=== PATIENT | male | born 1955 | race Caucasian/White ===

== ENCOUNTER → 2017-08-14 11:24 | Outpatient (REF) | payer BC, SELFPAY ==
[2017-08-14 14:02] LABS: Amphetamine/Metha Screen,Urine Negative ng/mL (<1000); Barbiturates Screen,Urine Negative ng/mL (<200); Benzodiazepines Screen,Urine Negative ng/mL (200); Cannabinoid Screen,Urine Negative ng/mL (<50); Cocaine Screen,Urine Negative ng/g (<300); Methadone Screen,Urine Negative ng/mL (<300); Opiate Screen,Urine Negative ng/mL (<300); Phencyclidine Screen,Urine Negative ng/mL (<25)
== END ==
LOC: LAB 11:24
PROVIDERS: Visit Provider Emergency Medicine
DX: Z79.891 Long term (current) use of opiate analgesic (principal)
CPT/HCPCS: 80305

== ENCOUNTER → 2018-02-12 13:47 | Outpatient (CLI) | payer BC, SELFPAY ==
[2018-02-12 15:24] LABS: Amphetamine/Metha Screen,Urine Negative ng/mL (<1000); Barbiturates Screen,Urine Negative ng/mL (<200); Benzodiazepines Screen,Urine Negative ng/mL (<200); Cannabinoid Screen,Urine Negative ng/mL (<50); Cocaine Screen,Urine Negative ng/mL (<300); Methadone Screen,Urine Negative ng/mL (<300); Opiate Screen,Urine Negative ng/mL (<300); Phencyclidine Screen,Urine Negative ng/mL (<25)
== END ==
PROVIDERS: Visit Provider Emergency Medicine
DX: Z79.899 Other long term (current) drug therapy (principal)
CPT/HCPCS: 80305

== ENCOUNTER → 2018-08-06 14:49 | Outpatient (CLI) | payer BC, SELFPAY ==
[2018-08-06 16:13] LABS: Amphetamine/Metha Screen,Urine Negative ng/mL (<1000); Barbiturates Screen,Urine Negative ng/mL (<200); Benzodiazepines Screen,Urine Negative ng/mL (<200); Cannabinoid Screen,Urine Negative ng/mL (<50); Cocaine Screen,Urine Negative ng/mL (<300); Methadone Screen,Urine Negative ng/mL (<300); Opiate Screen,Urine Negative ng/mL (<300); Phencyclidine Screen,Urine Negative ng/mL (<25)
[2018-08-13 14:19] LABS: Alprazolam Negative (Cutoff=100); Benzodiazepines Negative ng/mL (Cutoff=100); Clonazepam Negative (Cutoff=100); Flurazepam Negative (Cutoff=100); Lorazepam Negative (Cutoff=100); Midazolam Negative (Cutoff=100); Temazepam Negative (Cutoff=100); Triazolam Negative (Cutoff=100)
== END ==
PROVIDERS: Visit Provider Emergency Medicine
DX: F41.9 Anxiety disorder, unspecified (principal); Z79.899 Other long term (current) drug therapy
CPT/HCPCS: 80305; 80346

== ENCOUNTER → 2019-02-04 16:59 | Outpatient (CLI) | payer BC, SELFPAY ==
[2019-02-04 20:19] LABS: Amphetamine/Metha Screen,Urine Negative ng/mL (<1000); Barbiturates Screen,Urine Negative ng/mL (<200); Benzodiazepines Screen,Urine Negative ng/mL (<200); Cannabinoid Screen,Urine Negative ng/mL (<50); Cocaine Screen,Urine Negative ng/mL (<300); Methadone Screen,Urine Negative ng/mL (<300); Opiate Screen,Urine Negative ng/mL (<300); Phencyclidine Screen,Urine Negative ng/mL (<25)
[2019-02-13 14:10] LABS: Alprazolam Negative (Cutoff=100); Benzodiazepines Positive ng/mL (Cutoff=100); Clonazepam Positive (.); Flurazepam Negative (Cutoff=100); Lorazepam Negative (Cutoff=100); Midazolam Negative (Cutoff=100); Temazepam Negative (Cutoff=100); Triazolam Negative (Cutoff=100)
[2019-02-14 06:47] LABS: Clonazepam Confirm 158 ng/mL (Cutoff=100)
== END ==
PROVIDERS: Visit Provider Emergency Medicine
DX: Z79.899 Other long term (current) drug therapy (principal)
CPT/HCPCS: 80305; 80346

== ENCOUNTER → 2019-08-01 16:47 | Outpatient (CLI) | payer BC, SELFPAY ==
[2019-08-01 18:19] LABS: Barbiturates Screen,Urine Negative ng/ml (<200); Benzodiazepines Screen,Urine Negative ng/ml (<200)
[2019-08-01 18:20] LABS: Amphetamine/Metha Screen,Urine Negative ng/ml (<1000)
[2019-08-01 18:21] LABS: Cannabinoid Screen,Urine Negative ng/ml (<50); Cocaine Screen,Urine Negative ng/ml (<300)
[2019-08-01 18:22] LABS: Methadone Screen,Urine Negative ng/ml (<300)
[2019-08-01 18:23] LABS: Opiate Screen,Urine Negative ng/ml (<300)
[2019-08-01 18:24] LABS: Phencyclidine Screen,Urine Negative ng/ml (<25)
== END ==
PROVIDERS: Visit Provider Emergency Medicine
DX: Z79.899 Other long term (current) drug therapy (principal)
CPT/HCPCS: 80305

== ENCOUNTER 2019-08-26 13:32 | Emergency (ER) | payer BC, SELFPAY ==
[2019-08-26 13:34] VITALS: BP 150/49; PULSE 79; RESP 19; TEMP 36.8; O2SAT 100; BMI 23.0
--- NOTE | 2019-08-26 14:09 | HMH.EDWNDL ---
ED Disposition Clinical Impression: Laceration Disposition: Home, Self-Care Condition on Discharge: Good Instructions: DI for Laceration Repair Prescriptions: Hydrocodone/Acetaminophen [[place] 10-325 Tablet] 1 tab PO QID PRN 3 Days #9 tab PRN Reason: Breakthru Mild Pain Prescription Printed Referrals: Jimy Keenan MD [Primary Care Provider] - - Critical Care Critical Care Time: No Attestation: On 08/26/19, the high probability of a clinically significant, sudden or life threatening deterioration of the following system(s) required my full and direct attention, intervention and personal management. The time I documented below is in addition to time spent performing reported procedures but includes the following listed in this critical care notation. Medical Decision Making - Medical Records Medical records reviewed: Yes: I reviewed the patient's medical records. - Yvan Inquiry Pt receiving controlled substance: No Vital Signs: 08/26/19 13:34 Temperature 98.3 F Temperature Source Oral Pulse Rate [Radial] 79 Respiratory Rate 19 Blood Pressure [Right Arm] 150/49 H Blood Pressure Mean [Right Arm] 82 Blood Pressure Source [Right Arm] Automatic Cuff Blood Pressure Position [Right Arm] Sitting 02 Sat by Pulse Oximetry 100 Oxygen Delivery Method Room Air - Lab Data Lab results reviewed: Yes: I reviewed the patient's lab results. Wound/Laceration HPI - General Chief Complaint: Wound/Laceration Stated Complaint: AO 08/26/19 1215 left ankle lac Time Seen by Provider: 08/26/19 14:10 Mode of Arrival: Ambulatory Source of Information: Patient Limitations: No Limitations Description of Symptoms (Recalled from ER Triage Doc. by RN): cut left ankle with circular saw - History of Present Illness HPI narrative: 64-year-old gentleman presents the ED with a laceration to his left ankle. He was using a circular saw her at home and missed the wood and cut into his lower leg. Patient complains of pain 7 out of 10 classifies it as sharp. He states alleviating factors include rest and elevation. Exacerbating factors include ambulation and movement. This injury took place about 30 minutes prior to arrival here in the ED. Patient denies any other trauma or any other injuries. Patient states he is got no nausea vomiting or diarrhea. Patient states that he has no cough or shortness of breath. - Related Data Home Medications Medication Instructions Recorded Confirmed alfalfa 600 mg tablet mg PO DAILY tab 08/14/17 08/01/19 krill [id number]-[id number]-epa 300 cap PO DAILY cap 08/14/17 08/01/19 mg-90 mg (27 mg-45 mg) capsule Previous Rx's Medication Instructions Recorded cholecalciferol (vitamin D3) 50 2,000 unit PO DAILY #90 cap 02/12/18 mcg (2,000 unit) capsule multivitamin,ap-zgsv-zpicypla 1 tab PO QAM #90 tab 02/12/18 sertraline 50 mg tablet 50 mg PO Q24H #90 tab 02/04/19 sildenafil (pulm.hypertension) 20 20 mg PO DAILY #20 tab 02/04/19 mg tablet losartan 25 mg tablet 25 mg PO DAILY #90 tab 05/16/19 clonazepam 1 mg tablet 1 mg PO TID #90 tab 08/01/19 Hydrocodone/Acetaminophen [[place] 1 tab PO QID PRN 3 Days #9 tab 08/26/19 10-325 Tablet] Allergies Allergy/AdvReac Type Severity Reaction Status Date / Time Penicillins [PENICILLINS] Allergy Unknown Verified 08/01/19 11:00 [facility] History - Hepatitis A Screen Drug use history?: No High risk sexual behaviors?: No History of sexually transmitted infection?: No Currently employed?: No Childcare worker?: No Do you have indoor plumbing?: Yes Do you have electricity?: Yes Attestation statement:: This patient has been screened for Hepatitis A risk factors. I have reviewed the patient's past medical history: Yes Medical History: Reports:: Anxiety, Hypertension Comment: cologuard ordered and sent back,pt called insurance and they said they wouldnt pay for it. Other Surgeries: Yes: No Previous Surgery, Colonoscopy, Other Amput
[2019-08-26 14:46] VITALS: BP 150/49; PULSE 79; RESP 19; TEMP 36.8; O2SAT 100
== END 2019-08-26 14:47 | disposition home or self-care (01) ==
PROVIDERS: Emergency Provider Family Medicine; PCP Emergency Medicine
DX: S91.012A Laceration without foreign body, left ankle, initial encounter (principal); W31.2XXA Contact with powered woodworking and forming machines, initial encounter; Y92.019 Unspecified place in single-family (private) house as the place of occurrence of the external cause; I10 Essential (primary) hypertension; F41.9 Anxiety disorder, unspecified; Z88.0 Allergy status to penicillin; Z79.899 Other long term (current) drug therapy
CPT/HCPCS: 12002; 99282

== ENCOUNTER 2019-11-24 13:09 | Emergency (ER) | payer BC, SELFPAY ==
[2019-11-24 13:23] VITALS: BP 119/74; PULSE 67; RESP 20; TEMP 36.8; O2SAT 100; BMI 23.0
--- NOTE | 2019-11-24 13:56 | HMH.EDUTC ---
[facility] [place] Clinical Impression: Contact dermatitis Qualifiers: Contact dermatitis type: allergic Contact dermatitis trigger: unspecified trigger Qualified Code(s): L23.9 - Allergic contact dermatitis, unspecified cause Disposition: Home, Self-Care Condition on Discharge: Good Instructions: DI for Contact Dermatitis Additional Instructions: Avoid contact with the offending substance (poison janie). Don't start the oral steroids until tomorrow. Don't put the topical steroids (triamcinolone) on your face or your groin. Follow up with your regular doctor. GO TO THE ER FOR ANY WORSENING SYMPTOMS OR CONCERNS Prescriptions: methylPREDNISolone [Medrol] 4 mg PO DIRECTED 6 Days #21 tab.[email or web address] Transmission Status: Received by [facility] Triamcinolone Acetonide 1 applicatio TP TIDP PRN 7 Days #1 tube PRN Reason: Itching Transmission Status: Received by [facility] Referrals: Jimy Keenan MD [Primary Care Provider] - Time of Disposition: 13:58 Medical Decision Making - Medical Records Medical records reviewed: No: I reviewed the patient's medical records. - Yvan Inquiry Pt receiving controlled substance: No Vital Signs: 11/24/19 13:23 11/24/19 14:01 Temperature 98.2 F 98.2 F Temperature Source Oral Pulse Rate 67 Pulse Rate [Right Brachial] 67 Respiratory Rate 20 20 Blood Pressure 119/74 Blood Pressure [Right Arm] 119/74 Blood Pressure Mean [Right Arm] 89 Blood Pressure Source [Right Arm] Automatic Cuff Blood Pressure Position [Right Arm] Sitting 02 Sat by Pulse Oximetry 100 Oxygen Delivery Method Room Air Orders (Tests/Meds): ED MEDICATIONS Discontinued Medications Generic Name Dose Route Start Last Admin Trade Name Freq PRN Reason Stop Dose Admin Methylprednisolone Sodium Succinate 125 mg 11/24/19 13:42 11/24/19 13:48 Solu-Medrol 125mg/2ml Vial IM 11/24/19 13:43 125 mg ONCE ONE Administration [facility] [place] HPI - General Stated complaint: rash Time Seen by Provider: 11/24/19 13:30 Mode of Arrival: Ambulatory Source of Information: Patient Limitations: No Limitations Description of Symptoms (Recalled from Triage Doc. by RN): PATIENT C/O ITCHY, RED RASH TO BUE; UNKNOWN SOURCE HEENT Symptoms (Recalled from RN notes): No Resp Symptoms (Recalled from RN notes): No Skin Symptoms (Recalled from RN notes): Yes MS Symptoms (Recalled from RN notes): No Functional Status (Recalled from RN notes): WNL - History of Present Illness Provider Complaint: He c/o itching and rash to both forearms. He thinks that he changed his oil and got synthetic oil on his forearms and it broke him out. - Related Data Home Medications Medication Instructions Recorded Confirmed Losartan Potassium [Cozaar 25mg 25 mg PO DAILY 11/24/19 11/24/19 Tablets] Previous Rx's Medication Instructions Recorded Triamcinolone Acetonide 1 applicatio TP TIDP PRN 7 Days #1 11/24/19 tube methylPREDNISolone [Medrol] 4 mg PO DIRECTED 6 Days #21 11/24/19 tab.[email or web address] Allergies Allergy/AdvReac Type Severity Reaction Status Date / Time Penicillins [PENICILLINS] Allergy Unknown Verified 09/05/19 11:29 - Worker's Comp Is this a Worker's Comp case?: No [facility] History - Hepatitis A Screen Drug use history?: No High risk sexual behaviors?: No History of sexually transmitted infection?: No Currently employed?: No Childcare worker?: No Do you have indoor plumbing?: Yes Do you have electricity?: Yes Attestation statement:: This patient has been screened for Hepatitis A risk factors. I have reviewed the patient's past medical history: Yes Medical History: Reports:: Anxiety, Hypertension Comment: cologuard ordered and sent back,pt called insurance and they said they wouldnt pay for it. Other Surgeries: Yes: No Previous Surgery, Colonoscopy, Other Amputation: No Fractures: No - Social History Smoking Status: Former smoker Alcohol Intake: never Substanc
[2019-11-24 14:01] VITALS: BP 119/74; PULSE 67; RESP 20; TEMP 36.8; O2SAT 100
== END 2019-11-24 14:06 | disposition home or self-care (01) ==
PROVIDERS: Emergency Provider Nurse Practitioner Family; PCP Emergency Medicine
DX: L23.9 Allergic contact dermatitis, unspecified cause (principal); F41.9 Anxiety disorder, unspecified; I10 Essential (primary) hypertension
CPT/HCPCS: 96372; 99201

== ENCOUNTER → 2019-12-23 10:06 | Outpatient (POV) | payer BC, SELFPAY | PROVIDERS: Visit Provider Dermatology | DX: Z00.00 Encounter for general adult medical examination without abnormal findings (principal) ==

== ENCOUNTER → 2020-10-19 09:31 | Outpatient (POV) | payer BC, SELFPAY | PROVIDERS: Visit Provider Dermatology | DX: Z00.00 Encounter for general adult medical examination without abnormal findings (principal) ==